=== PATIENT | female | born 2000 | race Caucasian/White ===

== ENCOUNTER 2022-09-25 23:47 | Emergency (ER) | payer BC, SELFPAY ==
[2022-09-25 23:48] VITALS: BP 146/93; PULSE 95; RESP 18; TEMP 35.8; O2SAT 96; BMI 34.4
--- NOTE | 2022-09-26 00:12 | ED.VIS.DENTA ---
HPI History of Present Illness Chief Complaint: Other, Pain/Inj Detail of Chief Complaint: Right sided jaw pain Informant: patient Onset/Context/Timing Onset: Days (Onset Friday, September 23) Context: Sudden Onset Timing: Continuous Quality: Pain Location: Right jaw Current Severity: Mild Maximum Severity: Moderate Worsened by: Nothing specific Associated Symptoms Assocated Symptom - Dental: Negative for fever, jaw swelling, face swelling, cold sensitivity or hot sensitivity Narrative Narrative: Patient was seen at the [facility] wellness center. She was sent to the ER by the nurse because of concern for TMJ syndrome. She denies fever, chills night sweats. She denies history of medic fever, heart murmur, SBE or being immune suppressed. Patient states she has intolerance to opiates with nausea and vomiting. She denies difficulty opening or closing her mouth. She denies change in voice. She denies rash. Prior similar symptoms: No PFSH PFSH Medical History no medical history no medical history Home Medications naproxen 500 mg tablet 500 mg PO BID #14 tabs 09/26/22 [Rx Last Taken Unknown] penicillin V potassium 500 mg tablet 500 mg PO 4X/DAY #28 tabs 09/26/22 [Rx Last Taken Unknown] Allergy/AdvReac Type Severity Reaction Status Date / Time No Known Allergies Allergy Verified 09/25/22 23:48 Social History (Updated 09/26/22 @ 00:[address] Eddie Rodríguez MD) housing: other details: [facility] Smoking Status: Never smoker substance use type: does not use ROS ROS ED Constitutional Constitutional ED: Denies chills, fever(s), subjective, sweats or weight loss Eyes Eyes: Denies blurry vision or change in vision ENT ENT ED: Denies ear pain, rhinorrhea or sore throat Cardiovascular Cardiovascular: Denies chest pain Respiratory/Chest Respiratory/Chest: Denies cough or dyspnea Gastrointestinal Gastrointestinal: Denies nausea or vomiting Musculoskeletal Musculoskeletal: Denies arthralgias, myalgias or neck pain Integumentary Denies rash EXAM Physical Exam Const Vital Signs: 09/25/22 23:48 Temperature 96.5 F L Temperature Source Temporal Pulse Rate 95 Respiratory Rate 18 Blood Pressure 146/93 H Blood Pressure Mean 110 Pulse Ox 96 Oxygen Delivery Method Room Air Positive well nourished, well developed and obese General Appearance ED: well developed and NAD Nutritional Appearance: obese HEENT HEENT Narrative: Atraumatic normocephalic. There is no TMJ tenderness. There is no into malocclusion. Patient has no obvious dental caries. Tapping of tooth #30 causes significant pain. There is no evidence of Ludewig's angina. There is no evidence for facial cellulitis. Throat: posterior oropharynx normal Eyes PERRL and EOMs intact bilaterally General Eye ED: Negative for pale conjunctiva or scleral icterus Neck no lymphadenopathy, supple and no JVD Neck Narrative: Trachea is midline. There is no inspiratory or expiratory stridor. Resp normal respiratory effort, no retractions and clear to auscultation bilaterally Cardio regular rate, regular rhythm, S1 normal heart sound, S2 normal heart sound and no murmurs Extremity Extremity Narrative: There is no Janeway lesions or splinter hemorrhages. Neuro oriented x3, CN's II-XII intact bilaterally and moves all extremities Psych Psych Narrative: Patient began to cry [place] leaving the room. She states she is nervous. Mood & Affect: tearful Skin no rashes or lesions noted and no wounds MDM MDM MDM Narrative Medical decision making narrative: With tenderness tapping tooth #30 suspect patient has apical abscess. She states she is from [place]. Recommended following up at the wellness center to ask if there is a dentist affiliated with the [place]. She also was given a dental sheet of dentist that are in the area. She was treated with penicillin and Naprosyn. Opiates were not given because of her concerns. There are no old records for review. There is no concern for pulpitis and she does not have sensitivity to cold or hot liquids. There is no concern for Ludewig's angina. She does not have trismus. She is a candidate for outpatient therapy. Discharge Plan Triage Chief Complaint: Other, Pain/Inj Other Complaint: Dental ED Provider: Eddie Rodríguez Dx/Rx/DC Orders Clinical Impression: Apical abscess Instructions: ED Tooth Abscess Prescriptions: New penicillin V potassium 500 mg tablet 500 mg PO 4X/DAY Qty: 28 0RF naproxen 500 mg tablet 500 mg PO BID Qty: 14 0RF Primary Care Provider: NOT,DEFINED Referrals: NOT,DEFINED [Primary Care Provider] - Dentist,Your [STAFF PHYSICIAN] - As soon as possible Disposition Disposition: Home, Self Care
[2022-09-26] MEDS: Naproxen 250 MG Tablet 500 MG PO (00:23)
[2022-09-26] MEDS: Penicillin Vk 250 MG Tablet 500 MG PO (00:24)
== END 2022-09-26 00:27 | disposition home or self-care (01) ==
LOC: ED 09-26 00:25
PROVIDERS: Emergency Provider Emergency Medicine; Visit Provider Emergency Medicine
DX: K04.7 Periapical abscess without sinus (principal); R68.84 Jaw pain; E66.9 Obesity, unspecified
CPT/HCPCS: 99283

== ENCOUNTER 2022-10-30 15:00 | Outpatient (RCR) | payer BC, SELFPAY ==
--- NOTE | 2022-06-17 15:41 | HP.PTEVAL ---
Patient's Visit Information GRETEL JEFFERS is a 22 year old F referred to Physical Therapy by DELMAR ANTOINE with a diagnosis of B patella instability and back pain. Date of Evaluation: 06/17/22 Physical Therapist: KADI Scanlon - Visit Plan Frequency: 2x /Week Duration: 6 Weeks Plan: 2X/ week for 6 weeks for AT for neutral spine core stability, postural exercises, hip and knee stability, gait training with HEP. IF pt does not tolerated AT or her schedule does fit our AT schedule may do land therapy for the above 2X/ week for 6 weeks with HEP. - Subjective Pt reports that she had L knee surgery in 2014 (Fx on back of knee cap and took the pcs out and tried to reconstruct the back on the knee cap but damage was too extensive). She has stopped dancing and has couple of dislocations of B knees. Most recently in [place] she started have subluxations in B knees again and this is a daily occurance. She was in [place] and both knee caps would not go back in place and they did an MRI and US on B knees and recommened surgery January 2022. Currenltly she gets clicking and popping daily and it only dislocates but she does not do squats, uneven ground etc. The more activity she is doing the worse the problem is. She has pain if she walks on it too long or if she does the stairs or pain if it rains outside in B knees. Saw ortho in [place] and she saw bone spurs and arthritis and wants PT and then possible surgery. The surgery would tighten things up. She sees the surgeon again in [place]. Pt reports that she has a family h/o back and knee pain. When she stopped dance she had increase back and knee pain. Neck pain 1-2. No current back pain. She plays violin she gets pain in her R shoulder blade. She gets lower thoracic pain and high lumbar pain when sleeping. She gets pain in her hips. Chiropractor has been keeping the pain under control. She sees the chiropractor 1X/ every 2 weeks. She has no N&T and no weakness in her legs. She is a student at the [employer]. Pt thinks that she possibly has a h/o ehrler Danlos syndrome. - Pain R knee pain Pain Intensity (Out of 10): 3 L knee pain Pain Intensity (Out of 10): 3 back pain Pain Intensity (Out of 10): 0 - Objective Gait: Walks with WBOS and valgus at B knees, B hip drop and decrease trunk rotation with gait. LE MMT: R hip flex 12.3# and L hip flex 12.9#. R knee ext 19# and L knee ext 15.3#. R knee flex 13.2 and L knee flex 13.2#. R hip abd 15.3 and L hip abd 12.4#. SLR: - B Slight tight HS. SLUMP: - B. Pt stands with increase hyper-extension of B knees. R knee AROM. L knee AROM. Heel and Toe raises: Pt is able to heel and toe raises. - Balance/Special Test Scores Lower Extremity Functional Score: 39 - Goals Goal 1:: I HEP Goal Time Frame: 6-8 Weeks Goal 2:: Decrease freq of B knees popping from daily to weekly Goal Time Frame: 6-8 Weeks Goal 3:: Be able to go up and down the stairs and walk without having increase knee pain Goal Time Frame: 6-8 Weeks Goal 4:: Be able to sleep through the night without having back pain Goal Time Frame: 6-8 Weeks - Anticipated Interventions Patient/Client Instruction: Educate patient on: Condition, Plan of Care For the Purpose of:: To decrease pain, To improve nutrient delivery to tissue, To improve muscle performance and motor function, To improve ability to perform ADL's, To increase tolerance to activity/condition/position, To improve performance and independence with ADL's, To decrease level of supervision to perform tasks, To improve ability of physical actions for home/community/work/leisure, To improve gait and locomotor functions, To improve health of tissue, To increase flexibility/ROM Therapeutic Exercise to Include: Strength training, Postural training, Flexibilty training, Gait and locomotor training, Neuromotor development, In an aquatic setting, Dynamic Lumbar Stabilization For the Purpose of:: To decrease pain, To improve nutrient delivery to tissue, To improve muscle performance and motor function, To improve ability to perform ADL's, To increase tolerance to activity/condition/position, To improve performance and independence with ADL's, To improve ability of physical actions for home/community/work/leisure, To improve gait and locomotor functions, To improve health of tissue, To decrease soft tissue restriction, To improve endurance Thank you for the opportunity to evaluate your patient. For Medicare and Medicare HMO plans, please review the plan of care and approve it. It will need to be FAXED BACK to us at [phone] for Medicare purposes. For Medicare only, by signing this I certify the plan of care. Please let me know if there are questions or concerns regarding this plan of care. Physician Signature: Date:
--- NOTE | 2022-07-10 16:48 | HP.PTREVAL ---
DELMAR DAVID ELINA, It has been my pleasure to treat GRETEL JEFFERS over the last 6 visits for B patella instability and back pain. Please see the progress note below for an update on the physical therapy plan of care! Subjective: Pt sees the Dr again on Aug 13. She feels better when she gets out of the pool for a few hours. She struggled with pain afterwards last session when picking up objects from the pool floor and squating exercises. Her pain level right now is a 4/10 in her knees and she thinks that the weather. Pt is not sure if she has a pool at the [employer]. She is not sure if the pain after doing AT is from just not doing for awhile or her pain is coming from her anatomy. Pt reports that Dr wanted 4-6 weeks and it has not been that due to insurance so she would like to continue to see if she progresses. Her L knee feels like her knee cap will move out laterally. She avoids stairs... and even doing stairs in the pool her knee is popping and painful so she does not do them. Pt is able to sleep throughout the night now without waking up with back pain. Objective/Function: Stairs: Pt did not want to try the stairs here in the clinic as she is afraid of being too painful. Gait: Walks with wider TOM and increase B toe slap... Plan Plan: Request additional visits for 3 more weeks until she goes home and sees surgeon to see if decreases pain and increases her day to day function. Balance/Gait/Functional tests - Balance/Special Test Scores Lower Extremity Functional Score: 31 Goals Goal 1:: I HEP Goal Time Frame: 6-8 Weeks Goal Progress: Progressing Goal 2:: Decrease freq of B knees popping from daily to weekly Goal Time Frame: 6-8 Weeks Goal Progress: Not Progressing Goal 3:: Be able to go up and down the stairs and walk without having increase knee pain Goal Time Frame: 6-8 Weeks Goal Progress: Not Progressing Goal 4:: Be able to sleep through the night without having back pain Goal Time Frame: 6-8 Weeks Goal Progress: Goal Met Anticipated Interventions Patient/Client Instruction: Educate patient on: Condition, Plan of Care For the Purpose of:: To decrease pain, To improve nutrient delivery to tissue, To improve muscle performance and motor function, To improve ability to perform ADL's, To increase tolerance to activity/condition/position, To improve performance and independence with ADL's, To decrease level of supervision to perform tasks, To improve ability of physical actions for home/community/work/leisure, To improve gait and locomotor functions, To improve health of tissue, To increase flexibility/ROM Therapeutic Exercise to Include: Strength training, Postural training, Flexibilty training, Gait and locomotor training, Neuromotor development, In an aquatic setting, Dynamic Lumbar Stabilization For the Purpose of:: To decrease pain, To improve nutrient delivery to tissue, To improve muscle performance and motor function, To improve ability to perform ADL's, To increase tolerance to activity/condition/position, To improve performance and independence with ADL's, To improve ability of physical actions for home/community/work/leisure, To improve gait and locomotor functions, To improve health of tissue, To decrease soft tissue restriction, To improve endurance Please do not hesitate to contact me at [phone] by phone or if you have questions or concerns regarding this new plan of care! Sincerely, Sepideh Rowley, MPT
--- NOTE | 2022-09-18 17:30 | HP.PTREVAL ---
DELMAR DAVID ELINA, It has been my pleasure to treat GRETEL JEFFERS over the last 7 visits for B patella instability and back pain. Please see the progress note below for an update on the physical therapy plan of care! Subjective: Pt was referred to an orthopedic surgeon which she sees in October. She saw a PT online for one session and gave her some exercises everyday. Sometimes it makes her pain worse so she will take a day off. The exercises do make her hips click and pop. She has been avoiding stairs cause the stairs cause her knees to go up to a 2 or a 3/10. Pt does wake up at night a few times a night with back pain. Pt is ok sitting in class but if she sits in a movie theater she gets numbness in her kness and hard to stand. Objective/Function: Gait: Pt walked with small stride and walked very cautiously. B feet slap. Stairs: Pt did not want to do the stairs due to not wanting to stir up her pain. Plan Plan: 6 visits for AT for core stability, B hip and knee strengthening, stairs with HEP Balance/Gait/Functional tests - Balance/Special Test Scores Lower Extremity Functional Score: 37 Goals Goal 1:: I HEP Goal Time Frame: 6-8 Weeks Goal Progress: Progressing Goal 2:: Decrease freq of popping with stairs and walking up inclines Goal Time Frame: 6-8 Weeks Goal Progress: Not Progressing Goal 3:: Be able to go up and down the stairs and walk without having increase knee pain Goal Time Frame: 6-8 Weeks Goal Progress: Not Progressing Goal 4:: Be able to sleep through the night without having back pain Goal Time Frame: 6-8 Weeks Goal Progress: Progressing Anticipated Interventions Patient/Client Instruction: Educate patient on: Condition, Plan of Care For the Purpose of:: To decrease pain, To improve nutrient delivery to tissue, To improve muscle performance and motor function, To improve ability to perform ADL's, To increase tolerance to activity/condition/position, To improve performance and independence with ADL's, To decrease level of supervision to perform tasks, To improve ability of physical actions for home/community/work/leisure, To improve gait and locomotor functions, To improve health of tissue, To increase flexibility/ROM Therapeutic Exercise to Include: Strength training, Postural training, Flexibilty training, Gait and locomotor training, Neuromotor development, In an aquatic setting, Dynamic Lumbar Stabilization For the Purpose of:: To decrease pain, To improve nutrient delivery to tissue, To improve muscle performance and motor function, To improve ability to perform ADL's, To increase tolerance to activity/condition/position, To improve performance and independence with ADL's, To improve ability of physical actions for home/community/work/leisure, To improve gait and locomotor functions, To improve health of tissue, To decrease soft tissue restriction, To improve endurance Please do not hesitate to contact me at [phone] by phone or if you have questions or concerns regarding this new plan of care! Sincerely, Sepideh Rowley, MPT
--- NOTE | 2022-10-30 15:24 | HP.PTDCSUM ---
It has been my pleasure to treat GRETEL JEFFERS referred by DELMAR ANTOINE, with the diagnosis of B patella instability and back pain for a total of 13 visit(s). Discharge Date: 10/30/22 Please see the following information for a summary of their discharge status. Subjective: Pt goes back to the orthopedic surgeon in a week and a half. She reports that her back may be 20% better and knees are 5% better. Her back does not wake her up in the middle of the night but still wakes her up before her alarm. She mostly feels her knee pain when the weather changes (knees get achy). If she does a lot of stairs in one day... she always feels it later. She has popping the R and grinding in the L. R knee pain Pain Intensity (Out of 10): 0 L knee pain Pain Intensity (Out of 10): 0 back pain Pain Intensity (Out of 10): 2 % Improvement: 5 Objective/Function: Gait: Walks with a normal gait pattern. sit to stand: has to use her arms to get up out of a chair due to pain. Goal 1:: I HEP Goal Progress: Goal Met Goal 2:: Decrease freq of popping with stairs and walking up inclines Goal Progress: Not Progressing Goal 3:: Be able to go up and down the stairs and walk without having increase knee pain Goal Progress: Not Progressing Goal 4:: Be able to sleep through the night without having back pain Goal Progress: Progressing Plan: DC PT and back to surgeon If there are questions or concerns regarding this patient's physical therapy, please feel free to call me at [phone]. Thank you for the referral of this patient. Sincerely, Sepideh Rowley, MPT Balance/Gait/Functional tests - Balance/Special Test Scores Lower Extremity Functional Score: 30
== END 2022-10-30 19:00 | disposition home or self-care (01) ==
LOC: PT 15:00
DX: M23.50 Chronic instability of knee, unspecified knee (principal); M54.9 Dorsalgia, unspecified; M25.361 Other instability, right knee; M25.362 Other instability, left knee
CPT/HCPCS: 97113; 97162; 97530